=== PATIENT | male | born 2000 ===

== ENCOUNTER 2018-06-25 12:43 | Emergency (ER) | payer OTHER ==
[2018-06-25 13:07] VITALS: RESP 18; TEMP 98.1; O2SAT 100
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
[2018-06-25 15:55] VITALS: BP 118/75; PULSE 76
== END 2018-06-25 15:55 | disposition home or self-care (01) ==
LOC: C.ER 12:43 → EDBD 12:43 → C.ER 15:55
DX: T14.8XXA Other injury of unspecified body region, initial encounter (principal); V49.49XA Driver injured in collision with other motor vehicles in traffic accident, initial encounter; Y92.410 Unspecified street and highway as the place of occurrence of the external cause